=== PATIENT | female | born 1950 | race American Indian/Alaskan Native ===

== ENCOUNTER 2019-10-05 07:42 | Day surgery (SDC) | payer MEDICARE ==
[~2019-10-05] VITALS: Ht 157.5 cm; Wt 59.0 kg
[~2019-10-05 07:42] MED LIST: ACET500; AMLO5 PO; ATORVASTATIN CA40 MG PO; Amlodipine Bes2.5 MG PO; Ascorbic Acid500 MG PO; B COMPLEX-FOLI1 EACH PO; B-COMPLEX PLUS1 EACH; CHOL10002; CIDAFLEX TABLE1 EACH PO; Crestor20 MG PO; DOXY100 PO; ENTRESTO 49 MG1 EACH PO; EPIPEN 2-P0.3 MG/0.3 IM; EZET10 PO; EZET10-40 PO; Fish Oil 10001000 MG PO; GLUCOSA-CHOND-1 EACH PO; HYDACE5 PO; KAPSPARGO SPRIN25 MG PO; LISI10 PO; LISI20 PO; MELO7.5 PO; META800 PO; METAMUCIL0.4 GM PO; MULTIPLE VITAM1 EACH PO; Multiple Vitam1 EAC1; NITR100CA PO; PANT40 PO; PHENA100 PO; PROAIR RESPICL90 MCG INH; RISE35 PO; TRAZ100 PO; TRAZ150T57; VITAMIN D31000 UNI1 PO; Vitamin C100 M1
== END 2019-10-05 09:59 | disposition home or self-care (01) ==
LOC: ORSCSDS 07:42
PROVIDERS: Internal Medicine Gastroenterology
PROC: 0DBK8ZX Excision of Ascending Colon, Via Natural or Artificial Opening Endoscopic, Diagnostic (ICD-10-PCS; principal; 2019-10-05 09:00)
DX: Z12.11 Encounter for screening for malignant neoplasm of colon (principal); Z86.010 Personal history of colon polyps; Z83.71 Family history of colonic polyps; D12.2 Benign neoplasm of ascending colon; K57.30 Diverticulosis of large intestine without perforation or abscess without bleeding; Z79.899 Other long term (current) drug therapy
CPT/HCPCS: 88305; J0330; J0461; J2405; J2704; J7120

== ENCOUNTER 2025-02-25 12:41 | Day surgery (SDC) | payer MEDICARE ==
[~2025-02-25] VITALS: Ht 157.5 cm; Wt 57.0 kg
[2025-02-25] MEDS ORDERED: TUMS500 MG (12:55)
[2025-02-25] MEDS ORDERED: ASPI81CH (12:55)
[2025-02-25] MEDS ORDERED: B-12500 MC2 (12:56)
[2025-02-25] MEDS ORDERED: DAPAGLIFLOZIN10 MG (12:56)
[2025-02-25] MEDS ORDERED: MAGCHL64ER (12:56)
[2025-02-25] MEDS ORDERED: MELO7.5 (12:56)
[2025-02-25 14:41] VITALS: BP 107/64
== END 2025-02-25 14:41 | disposition home or self-care (01) ==
LOC: ORSCSDS 12:41
PROVIDERS: Internal Medicine Gastroenterology
PROC: 0DBH8ZX Excision of Cecum, Via Natural or Artificial Opening Endoscopic, Diagnostic (ICD-10-PCS; principal; 2025-02-25 14:15)
DX: Z12.11 Encounter for screening for malignant neoplasm of colon (principal); Z86.0101 Personal history of adenomatous and serrated colon polyps; D12.0 Benign neoplasm of cecum; I25.2 Old myocardial infarction; K59.09 Other constipation; I10 Essential (primary) hypertension; E78.5 Hyperlipidemia, unspecified; Z87.891 Personal history of nicotine dependence; Z79.82 Long term (current) use of aspirin; Z79.899 Other long term (current) drug therapy
CPT/HCPCS: 88305; J2704; J7120